=== PATIENT | male | born 1980 | race African-American/Black ===

== ENCOUNTER 2017-07-24 23:21 | Emergency (ER) | payer OTHER ==
[2017-07-24 23:35] VITALS: BP 143/89; PULSE 55; TEMP 99.1; BMI 27.1
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
[2017-07-25] MEDS ORDERED: VANCOMYCIN 1 GRAM (PRE-DOCKED) 1,000 MG/250 ML BAG IVPB ONE (00:16)
[2017-07-25] MEDS ORDERED: morphine SULFATE 4 MG/ML VIAL IVPUSH ONE (00:18)
[2017-07-25] MEDS ORDERED: AMPICILLIN NA/SULBACTAM NA 1.5 GM in SODIUM CHLORIDE 100 ML IVPB ONE (00:18)
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
[2017-07-25 01:18] LABS: MCH 30.1 pg (25.7-33.7); MCHC 33.3 g/dl (32.0-35.9); MEAN CELL VOLUME 90.3 fl (80-96); MEAN PLT VOLUME 8.5 fl (7.5-11.1); PLATELET COUNT 211 K/MM3 (134-434); RDW 13.3 % (11.9-15.9)
[2017-07-25] MEDS ORDERED: LIDOCAINE 2%/EPINEPHRINE 1:100000 (50 ML MD VIAL) INF ONE (01:18)
[2017-07-25] MEDS ORDERED: morphine SULFATE 4 MG/ML VIAL ONE (01:20)
[2017-07-25] MEDS ORDERED: VANCOMYCIN 1 GRAM (PRE-DOCKED) 250 ML IVPB ONE (01:20)
[2017-07-25] MEDS ORDERED: LIDOCAINE 1%/EPI 1:100000 (20 ML MULTI DOSE VIAL) ONE (01:20)
[2017-07-25 01:53] LABS: ALBUMIN 3.8 g/dl (3.4-5.0); ALK PHOS 65 U/L (45-117); ANION GAP 10 (8-16); BILIRUBIN,TOTAL 0.7 mg/dL (0.2-1.0); CALCIUM 8.4 mg/dL (8.5-10.1); CO2 25 mmol/L (21-32); CREATININE 1.4 mg/dL (0.7-1.3); GLUCOSE,RANDOM 89 mg/dL (74-106); SGOT/AST 21 U/L (15-37); SGPT/ALT 23 U/L (12-78); TOT PROT 7.9 g/dl (6.4-8.2)
[2017-07-25] MEDS ORDERED: morphine CARPU-JECT 8 MG/1 ML DISP.SYRIN IVPUSH ONE (02:50)
[2017-07-25] MEDS ORDERED: ACETAMINOPHEN 1000 MG/100 ML VIAL (NON FORMULARY) IVPB ONE (03:01)
[2017-07-25] MEDS ORDERED: ACETAMINOPHEN INJECTION 100 ML IVPB ONE (03:06)
== END 2017-07-25 03:33 | disposition home or self-care (01) ==
LOC: JER 23:21
PROC: 3E03329 Introduction of Other Anti-infective into Peripheral Vein, Percutaneous Approach (ICD-10-PCS; principal; 2017-07-24)
PROC: 3E03329 Introduction of Other Anti-infective into Peripheral Vein, Percutaneous Approach (ICD-10-PCS; 2017-07-24)
PROC: 3E033NZ Introduction of Analgesics, Hypnotics, Sedatives into Peripheral Vein, Percutaneous Approach (ICD-10-PCS; 2017-07-24)
PROC: 3E033GC Introduction of Other Therapeutic Substance into Peripheral Vein, Percutaneous Approach (ICD-10-PCS; 2017-07-24)
DX: S81.011A Laceration without foreign body, right knee, initial encounter (principal); V28.0XXA Motorcycle driver injured in noncollision transport accident in nontraffic accident, initial encounter; Y92.482 Bike path as the place of occurrence of the external cause; Y93.89 Activity, other specified; Y99.8 Other external cause status
CPT/HCPCS: 36415; 71010-TC; 73700-TC-RT; 80053; 85027; 99281-25; 99283-25

== ENCOUNTER 2017-08-04 02:43 | Emergency (ER) | payer OTHER ==
[2017-08-04 03:09] VITALS: TEMP 98.7; BMI 27.8
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
[2017-08-04] MEDS ORDERED: LIDOCAINE HCL 2% (50ML VIAL) SQ ONE (06:05)
[2017-08-04] MEDS ORDERED: LIDOCAINE HCL 2% (20ML MULTI-DOSE VIAL) NR ONE (06:10)
[2017-08-04 06:40] LABS: BASOPHIL 0.6 % (0-2.0); EOSINOPHIL 1.4 % (0-4.5); MCH 30.1 pg (25.7-33.7); MCHC 32.9 g/dl (32.0-35.9); MEAN CELL VOLUME 91.4 fl (80-96); MEAN PLT VOLUME 8.9 fl (7.5-11.1); NEUTROPHILS 37.6 % (42.8-82.8); PLATELET COUNT 215 K/MM3 (134-434); RDW 13.4 % (11.9-15.9); WHITE BLOOD COUNT 5.1 K/mm3 (4.0-10.0)
[2017-08-04 07:03] LABS: ALBUMIN 3.5 g/dl (3.4-5.0); ALK PHOS 59 U/L (45-117); ANION GAP 4 (8-16); BILIRUBIN,TOTAL 0.5 mg/dL (0.2-1.0); CALCIUM 8.6 mg/dL (8.5-10.1); CO2 30 mmol/L (21-32); CREATININE 1.3 mg/dL (0.7-1.3); GLUCOSE,RANDOM 93 mg/dL (74-106); SGOT/AST 19 U/L (15-37); SGPT/ALT 24 U/L (12-78); TOT PROT 7.2 g/dl (6.4-8.2)
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
--- NOTE | 2017-08-04 07:58 | PDOC ---
*Physical Exam - Vital Signs Last Vital Signs Temp Pulse Resp BP Pulse Ox 98.7 F 88 17 130/75 98 08/04/17 03:01 08/04/17 03:01 08/04/17 03:01 08/04/17 03:01 08/04/17 03:01 ED Treatment Course - LABORATORY CBC & Chemistry Diagram: 08/04/17 06:23 08/04/17 06:23 - ADDITIONAL ORDERS Additional order review: Laboratory Results 08/04/17 06:23 Sodium 142 Potassium 5.0 D Chloride 108 H Carbon Dioxide 30 Anion Gap 4 L BUN 17 D Creatinine 1.3 Creat Clearance w eGFR > 60 Random Glucose 93 Calcium 8.6 Total Bilirubin 0.5 D AST 19 ALT 24 Alkaline Phosphatase 59 Total Protein 7.2 Albumin 3.5 08/04/17 06:23 RBC 4.81 MCV 91.4 MCHC 32.9 RDW 13.4 MPV 8.9 Neutrophils % 37.6 L Lymphocytes % 50.3 H Monocytes % 10.1 Eosinophils % 1.4 Basophils % 0.6 - Medications Given in the ED: ED Medications Discontinued Medications Generic Name Dose Route Start Last Admin Trade Name Freq PRN Reason Stop Dose Admin Lidocaine HCl 50 mg 08/04/17 06:05 08/04/17 06:13 Xylocaine 2% SQ 08/04/17 06:06 50 mg ONCE ONE Administration Medical Decision Making - Medical Decision Making 08/04/17 07:53 pt signed out to me by Dr. Rodriguez as pending labs to rule out systemic infection for non healing knee wound. Labs show no evidence of infection. Wound examined by me--wound has granultion tissue and is partially open, but shows no signs of infection. Will give non adherent dressing. Will discharge home with plastics follow up. *DC/Admit/Observation/Transfer Diagnosis at time of Disposition: Open knee wound Qualifiers: Encounter type: subsequent encounter Laterality: right Qualified Code(s): S81.001D - Unspecified open wound, right knee, subsequent encounter - Discharge Dispostion Disposition: HOME Condition at time of disposition: Good Admit: No - Referrals Referrals: Brad Waters MD [Staff Physician] - - Patient Instructions Printed Discharge Instructions: DI for Wound Dehiscence Additional Instructions: your wound will heal by secondary intention. There is no signs of infection, but the wound will likely heal with a scar. return to the ED for fevers, redness or swelling of your knee, nausea or vomiting. Follow up with plastic surgery. - Post Discharge Activity
[2017-08-04 08:21] VITALS: BP 126/74; PULSE 85
== END 2017-08-04 08:22 | disposition home or self-care (01) ==
LOC: JER 02:43
DX: T81.33XA Disruption of traumatic injury wound repair, initial encounter (principal); Z48.02 Encounter for removal of sutures
CPT/HCPCS: 36415; 80053; 85025; 99281-25

== ENCOUNTER 2018-05-07 10:52 | Emergency (ER) | payer OTHER ==
[2018-05-07 11:06] VITALS: BP 116/81; PULSE 54; TEMP 98; BMI 25.1
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
== END 2018-05-07 12:04 | disposition home or self-care (01) ==
LOC: JER 10:52 → JERFT 10:52
PROC: 2W3LX1Z Immobilization of Right Lower Extremity using Splint (ICD-10-PCS; principal; 2018-05-07)
DX: S93.401A Sprain of unspecified ligament of right ankle, initial encounter (principal); W10.8XXA Fall (on) (from) other stairs and steps, initial encounter; Y93.89 Activity, other specified; Y92.89 Other specified places as the place of occurrence of the external cause; Y99.8 Other external cause status
CPT/HCPCS: 29505; 73590-TC-RT-FY; 73610-TC-RT-FY; 73630-TC-RT-FY; 99281-25

== ENCOUNTER 2018-06-12 21:14 | Inpatient (IN) | payer OTHER ==
--- NOTE | 2018-06-12 21:18 | PDOC ---
Rapid Medical Evaluation Chief Complaint: Pain Time Seen by Provider: 06/12/18 21:17 Medical Evaluation: Allergies Allergy/AdvReac Type Severity Reaction Status Date / Time No Known Allergies Allergy Verified 06/12/18 21:16 06/12/18 21:18 The patient presents with a chief complaint of: abd pain I have performed a brief in-person evaluation of this patient. Pertinent physical exam findings: vss, stable I have ordered the following: labs The patient will proceed to the ED for further evaluation. 06/12/18 21:19 Discharge Disposition - Referrals Referrals: Jay Mcmillan MD [Primary Care Provider] - - Patient Instructions - Post Discharge Activity
[2018-06-12] MEDS ORDERED: ONDANSETRON 4 MG/2 ML VIAL IVPUSH ONE (21:40)
[2018-06-12] MEDS ORDERED: morphine CARPU-JECT 4 MG/1 ML DISP.SYRIN IVPUSH ONE (21:40)
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
[2018-06-12 21:41] LABS: BASO % 0.6 % (0-2.0); EOS % 1.9 % (0-4.5); HEMATOCRIT 43.6 % (35.4-49); HEMOGLOBIN 14.5 GM/dL (11.7-16.9); LYMPH % 46.1 % (8-40); MCH 30.2 pg (25.7-33.7); MCHC 33.3 g/dl (32.0-35.9); MEAN CELL VOLUME 90.8 fl (80-96); MEAN PLT VOLUME 8.6 fl (7.5-11.1); MONO % 13.3 % (3.8-10.2); NEUT % 38.1 % (42.8-82.8); PLATELET COUNT 214 K/MM3 (134-434); RBC 4.81 M/mm3 (4.00-5.60); RDW 13.8 % (11.9-15.9); WHITE BLOOD COUNT 5.6 K/mm3 (4.0-10.0)
[2018-06-12 22:19] LABS: ALBUMIN 3.8 g/dl (3.4-5.0); ALK PHOS 71 U/L (45-117); ANION GAP 8 MMOL/L (8-16); BILIRUBIN,TOTAL 0.5 mg/dL (0.2-1); BLOOD UREA NITROGEN 18 mg/dL (7-18); CHLORIDE 105 mmol/L (98-107); CO2 28 mmol/L (21-32); CREATININE 1.3 mg/dL (0.55-1.3); GLUCOSE,RANDOM 81 mg/dL (74-106); LIPASE 226 U/L (73-393); POTASSIUM 4.3 mmol/L (3.5-5.1); SGOT/AST 27 U/L (15-37); SGPT/ALT 31 U/L (13-61); SODIUM 140 mmol/L (136-145); TOT PROT 8.1 g/dl (6.4-8.2)
[2018-06-12] MEDS ORDERED: ONDANSETRON 4 MG/2 ML VIAL ONE (22:19)
[2018-06-12] MEDS ORDERED: morphine SULFATE 4 MG/ML VIAL ONE (22:19)
[2018-06-13 00:43] LABS: INR 1.17 (0.83-1.09); PROTHROMBIN TIME (PATIENT) 13.2 SEC (9.7-13.0)
[2018-06-13 00:45] LABS: ACTIVATED PTT 34.7 SECONDS (25.2-36.5)
[2018-06-13] MEDS ORDERED: SODIUM CHLORIDE 1,000 ML IV SCH (00:45)
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
[2018-06-13 08:00] LABS: HEMATOCRIT 43.7 % (35.4-49); HEMOGLOBIN 14.5 GM/dL (11.7-16.9); MCHC 33.2 g/dl (32.0-35.9); MEAN CELL VOLUME 90.3 fl (80-96); MEAN PLT VOLUME 8.8 fl (7.5-11.1); PLATELET COUNT 168 K/MM3 (134-434); RBC 4.84 M/mm3 (4.00-5.60); RDW 13.7 % (11.9-15.9)
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
[2018-06-13 08:52] LABS: ANION GAP 10 MMOL/L (8-16); BLOOD UREA NITROGEN 15 mg/dL (7-18); CALCIUM 8.5 mg/dL (8.5-10.1); CHLORIDE 106 mmol/L (98-107); CO2 25 mmol/L (21-32); CREATININE 1.2 mg/dL (0.55-1.3); GLUCOSE,RANDOM 70 mg/dL (74-106); PHOSPHOROUS 3.2 mg/dL (2.5-4.9); POTASSIUM 4.2 mmol/L (3.5-5.1); SODIUM 140 mmol/L (136-145)
[2018-06-13] MEDS ORDERED: ROCURONIUM BROMIDE 50 MG/5 ML VIAL ONE (09:55)
[2018-06-13] MEDS ORDERED: SUCCINYLCHOLINE CHLORIDE 200 MG/10 ML VIAL ONE (09:56)
[2018-06-13] MEDS ORDERED: PROPOFOL 20 ML ONE ×2 (09:56)
[2018-06-13] MEDS ORDERED: MIDAZOLAM HCL 2 MG/2 ML SINGLE DOSE VIAL ONE (09:56)
[2018-06-13] MEDS ORDERED: BUPIVACAINE HCL/PF 0.5% (5MG/ML) 10 ML VIAL ONE (10:02)
[2018-06-13] MEDS ORDERED: ceFAZolin SODIUM 1 GM VIAL IVPB ONE (10:17)
[2018-06-13] MEDS ORDERED: ceFAZolin SODIUM 1 GM VIAL ONE (10:23)
[2018-06-13] MEDS ORDERED: DESFLURANE GAS 240 ML BOTTLE IH ONE (10:24)
[2018-06-13] MEDS ORDERED: NEOSTIGMINE METHYLSULFATE 0.5 MG/ML - 10 ML MDV ONE (11:05)
[2018-06-13] MEDS ORDERED: GLYCOPYRROLATE 0.2 MG/1 ML VIAL ONE (11:06)
[2018-06-13] MEDS ORDERED: KETOROLAC TROMETHAMINE 30 MG/1 ML VIAL ONE (11:06)
--- NOTE | 2018-06-13 11:26 | SURG ---
Surgery Auto Body Estimator Note Auto Body Estimator: Fritz Gonzalez PA-C Date of Service: 06/13/18 Diagnosis: Incarcerated incisional hernia Procedure: Open repair of incarcerated incisional hernia I was present for the entirety of the operative procedure. For further detail, please refer to operative report.
--- NOTE | 2018-06-13 11:38 | OP ---
Operative Note - Note: Operative Date: 06/13/18 Pre-Operative Diagnosis: incarcerated incisional hernia Operation: repair incarcerated incisional hernia Findings: 2.0 cm. defect w/incarcerated omentum/fat. Post-Operative Diagnosis: Same as Pre-op Surgeon: Abel Hutson Gunsmith Apprentice: Fritz Gonzalez Anesthesiologist/MANAGER EMPLOYEE RELATIONS: Mai Fitch Anesthesia: General Specimens Removed: sac and fat Estimated Blood Loss (mls): 10
[2018-06-13] MEDS ORDERED: LACTATED RINGERS SOLUTION 1,000 ML IV SCH (11:45)
[2018-06-13] MEDS ORDERED: ACETAMINOPHEN 325 MG TABLET (FP) PO PRN (12:30)
--- NOTE | 2018-06-13 18:04 | PN ---
Teaching Attending Note Name of Resident: Smita Stark ATTENDING PHYSICIAN STATEMENT I saw and evaluated the patient. I reviewed the resident's note and discussed the case with the resident. I agree with the resident's findings and plan as documented. SUBJECTIVE: abd pain, no fever or chills . No nausea . tolerated liquids OBJECTIVE: NAD Cv: RRR Lungs: CTAB abd: midline surgical dressing . NT. nl BS Ext: no edema ASSESSMENT AND PLAN: 37 y/o man with no significant PMH who presented with abd painand was found ot have incarcerated hernia 1- Incarcerated abdominal hernia: s/p surgical repair this am - IVF - diet - pain control - incentive spirometer DVt PX possible dc tomorrow
[2018-06-13] MEDS: oxyCODONE HCL 5 MG TABLET PO PRN ×2 (18:10→22:03)
--- NOTE | 2018-06-13 21:14 | PN ---
Physical Exam: SUBJECTIVE: Patient seen and examined this morning at bedside. Said abdominal pain is 10/10, came on after weight lifting. Did not have any BMs the day before admission, Did not eat much either. OBJECTIVE: Vital Signs Period Temp Pulse Resp BP Sys/Quiñonez Pulse Ox Last 24 Hr 97.7 F-99.1 F 50-62 14-20 130-158/73-92 98-100 GENERAL: The patient is awake, alert, and fully oriented, in no acute distress. HEAD: NCAT EYES: PERRL, EOMI ENT: Oropharynx clear without exudates, MMM NECK: Supple, No JVD LUNGS: Breath sounds equal, clear to auscultation bilaterally, no wheezes HEART: Regular rate and rhythm, S1, S2 without murmur. ABDOMEN: Soft, Tender to palpation throughout, worst at the midline over non- reducible, supraumbilical hernia, nondistended, + bowel sounds EXTREMITIES: 2+ pulses, warm, well-perfused, no edema. NEUROLOGICAL: Cranial nerves II through XII grossly intact. Normal speech, gait not observed. : No scrotal swelling, No Erythema noted, No lacerations or obvious signs of trauma, Right and left testicles equally firm, Mild tenderness to touch on the Left, No inguinal hernias noted, No inguinal lymphadenopathy noted Laboratory Results - last 24 hr 06/12/18 06/12/18 06/13/18 21:35 21:35 00:18 WBC 5.6 RBC 4.81 Hgb 14.5 Hct 43.6 MCV 90.8 MCH 30.2 MCHC 33.3 RDW 13.8 Plt Count 214 MPV 8.6 Absolute Neuts (auto) 2.1 Neutrophils % 38.1 L Lymphocytes % 46.1 H Monocytes % 13.3 H Eosinophils % 1.9 Basophils % 0.6 Nucleated RBC % 0 PT with INR 13.20 H INR 1.17 H PTT (Actin FS) 34.7 Sodium 140 Potassium 4.3 Chloride 105 Carbon Dioxide 28 Anion Gap 8 BUN 18 Creatinine 1.3 Creat Clearance w eGFR > 60 Random Glucose 81 Lactic Acid Calcium 9.0 Phosphorus Magnesium Total Bilirubin 0.5 AST 27 ALT 31 Alkaline Phosphatase 71 Total Protein 8.1 Albumin 3.8 Lipase 226 Blood Type Antibody Screen 06/13/18 06/13/18 06/13/18 00:18 00:18 07:45 WBC 5.0 RBC 4.84 Hgb 14.5 Hct 43.7 MCV 90.3 MCH 30.0 MCHC 33.2 RDW 13.7 Plt Count 168 D MPV 8.8 Absolute Neuts (auto) Neutrophils % Lymphocytes % Monocytes % Eosinophils % Basophils % Nucleated RBC % PT with INR INR PTT (Actin FS) Sodium Potassium Chloride Carbon Dioxide Anion Gap BUN Creatinine Creat Clearance w eGFR Random Glucose Lactic Acid 1.1 Calcium Phosphorus Magnesium Total Bilirubin AST ALT Alkaline Phosphatase Total Protein Albumin Lipase Blood Type A POSITIVE Antibody Screen Negative 06/13/18 06/13/18 07:45 07:45 WBC RBC Hgb Hct MCV MCH MCHC RDW Plt Count MPV Absolute Neuts (auto) Neutrophils % Lymphocytes % Monocytes % Eosinophils % Basophils % Nucleated RBC % PT with INR INR PTT (Actin FS) Sodium 140 Potassium 4.2 Chloride 106 Carbon Dioxide 25 Anion Gap 10 BUN 15 Creatinine 1.2 Creat Clearance w eGFR > 60 Random Glucose 70 L Lactic Acid Calcium 8.5 Phosphorus 3.2 Magnesium 2.0 Total Bilirubin AST ALT Alkaline Phosphatase Total Protein Albumin Lipase Blood Type A POSITIVE Antibody Screen Negative Active Medications Acetaminophen (Tylenol -) 650 mg PO Q6H PRN PRN Reason: PAIN LEVEL 1-5 Fentanyl (Sublimaze Injection -) 25 mcg IVPUSH [id number] PRN PRN Reason: PAIN-PACU ORDER X 4 DOSES ONLY Heparin Sodium (Porcine) (Heparin -) 5,000 unit SQ TID CINDI Lactated Ringer's (Lactated Ringers Solution) 1,000 mls @ 125 mls/hr IV ASDIR CINDI Oxycodone HCl (Roxicodone -) 5 mg PO Q4H PRN PRN Reason: PAIN LEVEL 4 - 6 Last Admin: 06/13/18 18:10 Dose: 5 mg IMAGING: -CXR: No evidence of active pulmonary disease. -CT A/P with contrast: Punctate nonobstructing right renal stone. Minimal right renal hydronephrosis without gross evidence of an obstructing right ureteral stone. A urology consult is suggested. Lack of oral contrast is limiting this examination without evidence of bowel obstruction or colitis. Questionable few diverticula in the descending and sigmoid colon without evidence of acute diverticulitis. Correlate clinically to determine further evaluation and follow-up. ASSESSMENT/PLAN: 37 yo male with no PMHx presents to [facility] ED with acute onset supraumbilical abd pain, 06/28, non-radiating that came on while working out at the gym. FOund to have supraumbilical hernia on CT and was scheduled for OR on 06/13. 1. Abdominal pain - likely due to Supraumbilical abdominal hernia -Surgery (Dr. Hutson) consulted, POD#0 s/p surgical repair (06/13) - IVF: LR @ 125 mls/hr - Clear Liquid diet - pain control via oxycodone 5mg - incentive spirometer 2. Left Testicular pain - Will need to R/O Torsion, STDs - US Scrotum pending - GC Tests pending 3. Hydronephrosis seen on CT - Urology (Dr. Palm) consulted - will likely need outpatient follow up 4. FEN -LR @ 125mls -Lytes WNL -Clearl Liquid diet 5. PPx - DVT: Heparin TID Dispo: possible dc tomorrow Visit type - Emergency Visit Emergency Visit: Yes ED Registration Date: 06/12/18 Care time: The patient presented to the Emergency Department on the above date and was hospitalized for further evaluation of their emergent condition. - New Patient This patient is new to me today: Yes Date on this admission: 06/13/18 - Critical Care Critical Care patient: No
[2018-06-13] MEDS: HEPARIN NA (PORCINE) 5,000 UNITS/ML 1ML VIAL SQ SCH (21:56)
[2018-06-14] MEDS: oxyCODONE HCL 5 MG TABLET PO PRN ×4 (02:16→17:04)
[2018-06-14] MEDS: HEPARIN NA (PORCINE) 5,000 UNITS/ML 1ML VIAL SQ SCH ×2 (06:33→13:16)
[2018-06-14 07:04] LABS: BASO % 0.3 % (0-2.0); EOS % 0.9 % (0-4.5); HEMATOCRIT 43.7 % (35.4-49); HEMOGLOBIN 14.6 GM/dL (11.7-16.9); LYMPH % 29.4 % (8-40); MCH 30.1 pg (25.7-33.7); MCHC 33.3 g/dl (32.0-35.9); MEAN CELL VOLUME 90.3 fl (80-96); MEAN PLT VOLUME 8.7 fl (7.5-11.1); MONO % 7.8 % (3.8-10.2); NEUT % 61.6 % (42.8-82.8); PLATELET COUNT 187 K/MM3 (134-434); RBC 4.84 M/mm3 (4.00-5.60); RDW 13.6 % (11.9-15.9); WHITE BLOOD COUNT 5.8 K/mm3 (4.0-10.0)
[2018-06-14 07:33] LABS: ALBUMIN 3.2 g/dl (3.4-5.0); ALK PHOS 69 U/L (45-117); ANION GAP 5 MMOL/L (8-16); BLOOD UREA NITROGEN 12 mg/dL (7-18); CALCIUM 8.6 mg/dL (8.5-10.1); CHLORIDE 102 mmol/L (98-107); CO2 29 mmol/L (21-32); CREATININE 1.5 mg/dL (0.55-1.3); GLUCOSE,RANDOM 79 mg/dL (74-106); PHOSPHOROUS 3.6 mg/dL (2.5-4.9); SGOT/AST 21 U/L (15-37); SGPT/ALT 23 U/L (13-61); SODIUM 137 mmol/L (136-145)
--- NOTE | 2018-06-14 11:07 | DS ---
"Physical Exam: SUBJECTIVE: Patient seen and examined this morning at bedside POD#1 s/p hernia repair. Pain is currently controlled, patient requested Oxycodone x 2 overnight. Patient ambulated overnight to urinate, has passed gas, and is using the incentive spirometer regularly. He has tolerated clears over night and breakfast this morning. Patient says his scrotal tenderness has resolved. Denies any fevers, chills, chest pain, SOB, nausea, vomiting, diarrhea, constipation. OBJECTIVE: Vital Signs Period Temp Pulse Resp BP Sys/Quiñonez Pulse Ox Last 24 Hr 97.7 F-98.7 F 50-58 14-18 130-152/73-92 98-100 PHYSICAL EXAM GENERAL: The patient is awake, alert, and fully oriented, in no acute distress. HEAD: NCAT EYES: PERRL, EOMI ENT: Oropharynx clear without exudates, moist mucous membranes. NECK: Supple, No JVD LUNGS: Breath sounds equal, clear to auscultation bilaterally, no wheezes HEART: Regular rate and rhythm, S1, S2 without murmur. ABDOMEN: Midline bandage covering surgical site, without active drainage or surrounding erythema and edema, mild tenderness at the surgical site without surrounding tenderness. Soft, nondistended, + bowel sounds, no guarding EXTREMITIES: 2+ pulses, no edema. SKIN: Warm, dry, no rashes or lesions noted. LABS Laboratory Results - last 24 hr 06/14/18 06/14/18 06:00 06:00 WBC 5.8 RBC 4.84 Hgb 14.6 Hct 43.7 MCV 90.3 MCH 30.1 MCHC 33.3 RDW 13.6 Plt Count 187 MPV 8.7 Absolute Neuts (auto) 3.6 Neutrophils % 61.6 D Lymphocytes % 29.4 D Monocytes % 7.8 Eosinophils % 0.9 Basophils % 0.3 Nucleated RBC % 0 Sodium 137 Potassium 4.0 Chloride 102 Carbon Dioxide 29 Anion Gap 5 L BUN 12 Creatinine 1.5 H Creat Clearance w eGFR 52.95 Random Glucose 79 Calcium 8.6 Phosphorus 3.6 Magnesium 2.0 Total Bilirubin 1.0 AST 21 ALT 23 Alkaline Phosphatase 69 Total Protein 7.0 Albumin 3.2 L IMAGING: -CXR: No evidence of active pulmonary disease. -CT A/P with contrast: Punctate nonobstructing right renal stone. Minimal right renal hydronephrosis without gross evidence of an obstructing right ureteral stone. A urology consult is suggested. Lack of oral contrast is limiting this examination without evidence of bowel obstruction or colitis. Questionable few diverticula in the descending and sigmoid colon without evidence of acute diverticulitis. There is a small ventral hernia within the anterior abdominal wall, slightly superior to the umbilicus. The hernia sac contains mesenteric fat. There is stranding and mild inflammatory changes within the herniated fat and the possibility of incarceration cannot be excluded. Clinical correlation is advised. No bowel is contained within the hernia. -Testicular US: Normal testicular sonogram with no evidence of torsion or acute pathology. HOSPITAL COURSE: Date of Admission:06/12/18 Date of Discharge: 06/14/18 37 y/o M with no significant PMHx presented to the ED with severe abdominal pain after working out at the gym. CT A/P showed a small ventral hernia within the anterior abdominal wall, containing mesenteric fat as noted above. General surgery was consulted and an Open repair of incarcerated incisional hernia was done on 06/13. Post-Op, Patient was able to tolerate clear liquids and eventually regular diet, His pain was controlled, He was able to urinate without catheterization and was able to pass flatus. He continued to use his incentive spirometer. Prior to his surgery, patient mentioned left testicular pain for which a Testicular Ultrasound was done and noted above. CT A/P also revealed a minimal right renal hydronephrosis for which a urology consult is recommended. His Cr was elevated and he was managed with IVF and instruction to follow up with Dr. Ladd in 1 week. Patient was discharged home to follow up with Dr. Hutson in One week. Minutes to complete discharge: 40 Discharge Summary Reason For Visit: IRREDUCIBLE HERNIA OF ANTERIOR ABDOMINAL WALL. Current Active Problems Hernia of abdominal wall (Acute) Incisional hernia (Acute) Condition: Improved - Instructions Diet, Activity, Other Instructions: Dr. Hutson Discharge Instructions Dear Abdelrahman, Post Operative Instructions Physical activity Resume your normal everyday activity as tolerated no heavy lifting or exercise until seen by your surgeon. You may walk unlimited amounts of and climb stairs. You may resume driving the car when you feel safe and comfortable behind the wheel. Wound care If you have a bandage, leave it on, and keep dry for 48 - 72 hours. After that time discard the outer bandage. If there are tapes on the skin under the outer bandage, leave them in place. They will peel off in the next 7 to 10 days. Do Not peel them off. You may shower 2 days after surgery. If there are tapes present on the skin, they can get wet. Diet There are no dietary restrictions. Eat healthy, high-fiber foods. Drink 6 to 8 glasses of liquid each day. This will assist in keeping your bowels are regular. Pain management You may take Tylenol or acetaminophen or Ibuprofen (for example, Motrin, Advil etc.) Any pain prescription medication ordered should be taken as prescribed for moderate to severe pain. Do not operate a motor vehicle while taking any narcotics nor drink alcoholic beverages as it will potentiate (increase) the effects of the drug. [place] [employer] checked prior to escribe of narcotics for pain management. This report was requested by: Arturo Ramsey | Reference #: [id number] Call Dr. Hutson for any of the following: Severe pain not relieved by medication Fever of 101 or higher Excessive bleeding or drainage on dressing Inability to urinate Call the office at [phone] for a post operative appointment in 7 - 10 days. One of your Kidney levels (Creatinine) was elevated. Please continue oral hydration and follow up with your primary care physician in one week. You will need a repeat lab test (BMP) to check this level. We are also giving you information to follow with a kidney doctor- Dr Ladd as an outpatient. Please call to make the appointment CT scan revealed you may have a Swelling of your right kidney (Right Hydronephrosis). It is recommended you follow up with a Urologist to further manage this. Dr. Darby's information has been provided. Referrals: Abel Hutson MD [Staff Physician] - 1 Week Juancarlos Darby MD [Staff Physician] - 1 Month Jay Mcmillan MD [Primary Care Provider] - 1 Week (Will need repeat BMP to recheck Cr level) Patsy Ladd MD [Staff Physician] - 2 Weeks Disposition: HOME - Home Medications Comprehensive Discharge Medication List: Ambulatory Orders NK [No Known Home Medication] 06/13/18 This patient is new to me today: Yes Date on this admission: 06/14/18 Emergency Visit: Yes ED Registration Date: 06/12/18 Care time: The patient presented to the Emergency Department on the above date and was hospitalized for further evaluation of their emergent condition. Critical Care patient: No - Discharge Referral Referred to [facility] No"
[2018-06-14] MEDS ORDERED: GLYCERIN 1 RECTAL SUPPOSITORY, ADULT RC ONE (11:22)
[2018-06-14] MEDS ORDERED: LACTATED RINGERS SOLUTION 1,000 ML IV SCH (11:23)
[2018-06-14 12:54] VITALS: BMI 27.8
[2018-06-14] MEDS ORDERED: DOCUSATE SODIUM 100 MG CAPSULE (FP) PO SCH (14:00)
--- NOTE | 2018-06-14 14:01 | PN ---
Progress Note (short form) - Note Progress Note: Surgery POD#1 repair incarcerated incisional hernia seen and examined at bedside with no complaints. Patient has been OOB ambulating to bathroom without assistance. He is passing gas from below but no BM yet. He states his pain is controlled and he denies any CP, fever, chills, N/V or SOB. Vital Signs Temp 98.3 F 06/14/18 09:00 Pulse 56 L 06/14/18 09:00 Resp 18 06/14/18 09:00 BP 133/78 06/14/18 09:00 Pulse Ox 98 06/14/18 09:00 Intake & Output 06/13/18 06/14/18 06/14/18 23:59 11:59 23:59 Intake Total 1325 1075 Balance 1325 1075 Weight 200 lb Intake: IV 1125 875 Lactated Ringers Solution 625 875 1,000 ml @ 125 mls/hr IV ASDIR CINDI Rx#: [id number] Normal Saline - 1,000 ml 300 @ 150 mls/hr IV ASDIR CINDI Rx#:[id number] Oral 200 200 Other: Voiding Method Toilet Toilet # Unmeasured Voids Void 1 Height 5 ft 11 in Body Mass Index (BMI) 27.8 CBC, BMP 06/14/18 06:00 06/14/18 06:00 PE: A&Ox3, NAD unlabored resp on RA ABD: Obese, ND, diffusely TTP around surgical site, midline incision c/d/i with cornelio insitu and surrounding tissue intact with no evidence of tacking erythema. incision redressed with xeroform, 4x4 and tegaderm B/L LE compartments soft, supple and nontender with +2 pedal pulses Problem List - Problems (1) Status post hernia repair Assessment/Plan: POD #1 patient doing well. 1) pain management 2) Encourage daily IS 3) Keep dressing clean and dry 4) d/c home and follow up with Caryl as outpatient Evaluation and plan discussed with Dr Hutson Code(s): Z98.890 - OTHER SPECIFIED POSTPROCEDURAL STATES; Z87.19 - PERSONAL HISTORY OF OTHER DISEASES OF THE DIGESTIVE SYSTEM
--- NOTE | 2018-06-14 15:14 | PN ---
Teaching Attending Note Name of Resident: Smita Stark ATTENDING PHYSICIAN STATEMENT I saw and evaluated the patient. I reviewed the resident's note and discussed the case with the resident. I agree with the resident's findings and plan as documented. SUBJECTIVE: Patient ia comfortable with no acute distress. OBJECTIVE: Vital Signs Temperature 98.3 F 06/14/18 09:00 Pulse Rate 56 L 06/14/18 09:00 Respiratory Rate 18 06/14/18 09:00 Blood Pressure 133/78 06/14/18 09:00 O2 Sat by Pulse Oximetry (%) 98 06/14/18 09:00 GENERAL: The patient is awake, alert, and fully oriented, in no acute distress. HEAD: NCAT EYES: PERRL, EOMI ENT: Oropharynx clear without exudates, MMM NECK: Supple, No JVD LUNGS: Breath sounds equal, clear to auscultation bilaterally, no wheezes HEART: RRR, S1, S2 without murmur. ABDOMEN: Soft, Positive for bowel sounds EXTREMITIES: 2+ pulses, warm, well-perfused, no edema. NEUROLOGICAL: Cranial nerves II through XII grossly intact. WBC 5.8 K/mm3 (4.0-10.0) 06/14/18 06:00 RBC 4.84 M/mm3 (4.00-5.60) 06/14/18 06:00 Hgb 14.6 GM/dL (11.7-16.9) 06/14/18 06:00 Hct 43.7 % (35.4-49) 06/14/18 06:00 MCV 90.3 fl (80-96) 06/14/18 06:00 MCHC 33.3 g/dl (32.0-35.9) 06/14/18 06:00 RDW 13.6 % (11.9-15.9) 06/14/18 06:00 Plt Count 187 K/MM3 (134-434) 06/14/18 06:00 MPV 8.7 fl (7.5-11.1) 06/14/18 06:00 CMP Sodium 137 mmol/L (136-145) 06/14/18 06:00 Potassium 4.0 mmol/L (3.5-5.1) 06/14/18 06:00 Chloride 102 mmol/L (98-107) 06/14/18 06:00 Carbon Dioxide 29 mmol/L (21-32) 06/14/18 06:00 Anion Gap 5 MMOL/L (8-16) L 06/14/18 06:00 BUN 12 mg/dL (7-18) 06/14/18 06:00 Creatinine 1.5 mg/dL (0.55-1.3) H 06/14/18 06:00 Creat Clearance w eGFR 52.95 (>60) 06/14/18 06:00 Random Glucose 79 mg/dL (74-106) 06/14/18 06:00 Calcium 8.6 mg/dL (8.5-10.1) 06/14/18 06:00 Total Bilirubin 1.0 mg/dL (0.2-1) 06/14/18 06:00 AST 21 U/L (15-37) 06/14/18 06:00 ALT 23 U/L (13-61) 06/14/18 06:00 Alkaline Phosphatase 69 U/L (45-117) 06/14/18 06:00 Total Protein 7.0 g/dl (6.4-8.2) 06/14/18 06:00 Albumin 3.2 g/dl (3.4-5.0) L 06/14/18 06:00 Current Medications Generic Name Dose Route Start Last Admin Trade Name Rosy PRN Reason Stop Dose Admin Acetaminophen 650 mg 06/13/18 12:30 Tylenol - PO Q6H PRN PAIN LEVEL 1-5 Docusate Sodium 100 mg 06/14/18 14:00 06/14/18 13:16 Colace - PO 100 mg TID CINDI Administration Fentanyl 25 mcg 06/13/18 11:38 Sublimaze Injection - IVPUSH [id number] PRN PAIN-PACU ORDER X 4 DOSES ONLY Heparin Sodium (Porcine) 5,000 unit 06/13/18 22:00 06/14/18 13:16 Heparin - SQ 5,000 unit TID CINDI Administration Lactated Ringer's 1,000 mls @ 250 mls/hr 06/14/18 11:23 06/14/18 11:40 Lactated Ringers Solution IV 250 mls/hr ASDIR CINDI Administration Oxycodone HCl 5 mg 06/13/18 12:31 06/14/18 11:39 Roxicodone - PO 5 mg Q4H PRN Administration PAIN LEVEL 4 - 6 Home Medications Medication Instructions Recorded NK [No Known Home Medication] 06/13/18 ASSESSMENT AND PLAN: Patient is a 37yo male with no significant PMH who presented with abd pain and was found to have incarcerated hernia # Incarcerated abdominal hernia: s/p surgical repair this am comfortable , tolerated diet , ok to send patient home discharge patient home
[2018-06-14 15:17] VITALS: BP 134/86; PULSE 64; TEMP 98.9
[2018-06-14 15:36] LABS: ANION GAP 9 MMOL/L (8-16); BLOOD UREA NITROGEN 12 mg/dL (7-18); CALCIUM 8.7 mg/dL (8.5-10.1); CHLORIDE 102 mmol/L (98-107); CO2 30 mmol/L (21-32); CREATININE 1.4 mg/dL (0.55-1.3); GLUCOSE,RANDOM 66 mg/dL (74-106); POTASSIUM 4.1 mmol/L (3.5-5.1); SODIUM 140 mmol/L (136-145)
--- NOTE | 2018-06-14 17:55 | PATH ---
Surgical Pathology Report Patient Name: WILLIAM ANTONIO Med. Rec. #: [id number] /Age/Gender: 1980 (Age: 37) / M Account: [id number] Location: [facility] MED/SURG Taken: 06/13/2018 Received: 06/13/2018 Reported: 06/14/2018 Physicians: Abel Hutson MD PHYSICIAN EMERGENCY DEPT Specimen(s) Received HERNIA SAC AND SCAR Clinical History Ventral hernia Final Diagnosis HERNIA SAC AND SCAR, EXCISION: FIBROADIPOSE TISSUE, CONSISTENT WITH HERNIA SAC. Electronically Signed Mirtha Brennan M.D. Gross Description Received in formalin, labeled "hernia sac" are 2 johnson, irregular portions of fibroadipose tissue measuring 4 x 3.5 x 1.8cm in aggregate. Fine Wire Drawer sections are submitted in one cassette. EDWARD/06/13/2018 marciano/06/13/2018
--- NOTE | 2018-06-19 19:44 | OP ---
DATE OF OPERATION: 06/13/2018 PREOPERATIVE DIAGNOSIS: Incarcerated incisional hernia. POSTOPERATIVE DIAGNOSIS: Incarcerated incisional hernia. PROCEDURE: Repair of incarcerated incisional hernia. SURGEON: Abel Hutson MD ASSURANCE ASSISTANT: Fritz Gonzalez PA-C ANESTHESIA: General. OPERATIVE FINDINGS: There was a 2-cm defect above the umbilicus, containing incarcerated omentum and preperitoneal fat. The rest of the findings were unremarkable. DESCRIPTION OF PROCEDURE: The patient was placed on the operating table in supine position. After the induction of general anesthesia, the patient's abdomen was prepped with ChloraPrep and draped in sterile fashion. A timeout was taken. An incision was made above the umbilicus and the palpable incarcerated hernia. This was taken down through skin and subcutaneous tissue, and the sac isolated from the surrounding area. The sac was opened, and the previously noted findings were observed. Redundant omentum and fat were excised using electrocautery and sent for pathological exam. The undersurface of the fascia was cleared, and the defect was repaired with multiple horizontal mattress sutures consisting of 0 Prolene. Hemostasis was secured with electrocautery and wound copiously irrigated with sterile saline. The subcutaneous tissue was infiltrated with 1% Xylocaine and 0.5% Marcaine and then the deep dermis reapproximated with interrupted 3-0 Vicryl and the skin edges with 4-0 Monocryl in a subcuticular continuous fashion. Steri-Strips and dry sterile dressings were placed and the procedure terminated at this point and the patient aroused from general anesthesia and transferred to the postanesthesia care unit in stable condition, awake, and alert. ESTIMATED BLOOD LOSS: 10 mL REPLACEMENTS: Crystalloid. DRAINS: None. SPECIMENS: Omentum and fat to pathology. I, Abel Hutson, was physically present in the operating room from the time the patient was placed on the operating table until he was transported to the postanesthesia care unit in my accompaniment. MD STEPHEN Guajardo/[id number]
== END 2018-06-14 18:39 | disposition home or self-care (01) | DRG 227 ==
LOC: JER 21:14 → JERBED 23:17 → J7W 06-13 05:06
PROVIDERS: ADMIT Internal Medicine; ATTEND Internal Medicine
PROC: 0WQF0ZZ Repair Abdominal Wall, Open Approach (ICD-10-PCS; principal; 2018-06-13 10:00)
DX: K43.0 Incisional hernia with obstruction, without gangrene (principal); N13.30 Unspecified hydronephrosis; N20.0 Calculus of kidney; N50.812 Left testicular pain; E66.9 Obesity, unspecified; Z68.27 Body mass index [BMI] 27.0-27.9, adult
CPT/HCPCS: 36415; 71045-TC-FY; 74177-TC; 76870-TC; 80048; 80053; 83605; 83690; 83735; 84100; 85025; 85027; 85610; 85730; 86850; 86900; 86901; 88302-TC; 94010; 94760; 99283-25; J1644; J7030

== ENCOUNTER 2018-08-20 02:36 | Emergency (ER) | payer OTHER ==
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
[2018-08-20 03:00] VITALS: TEMP 98.3; BMI 29.5
--- NOTE | 2018-08-20 03:15 | PDOC ---
Attending Attestation - Resident Resident Name: YahirFern - ED Attending Attestation I have performed the following: I have examined & evaluated the patient, The case was reviewed & discussed with the resident, I agree w/resident's findings & plan - HPI HPI: 08/20/18 05:09 Pt fears he has STDs Pt also with dysuria x 2 weeks - Physicial Exam PE: 08/20/18 05:10 Agree with resident exam. - Medical Decision Making 08/20/18 05:10 Home with keflex. Will treat for GC/chlamysdia here
[2018-08-20 03:48] LABS: BASO % 0.5 % (0-2.0); EOS % 1.7 % (0-4.5); HEMATOCRIT 41.3 % (35.4-49); HEMOGLOBIN 14.4 GM/dL (11.7-16.9); LYMPH % 30.2 % (8-40); MCH 31.6 pg (25.7-33.7); MEAN CELL VOLUME 90.3 fl (80-96); MONO % 8.9 % (3.8-10.2); NEUT % 58.7 % (42.8-82.8); PLATELET COUNT 215 K/MM3 (134-434); RBC 4.57 M/mm3 (4.00-5.60); WHITE BLOOD COUNT 6.3 K/mm3 (4.0-10.0)
[2018-08-20 04:10] LABS: URINE APPEARANCE CLEAR; URINE BILIRUBIN NEGATIVE (<2.0 mg/dL); URINE COLOR YELLOW; URINE GLUCOSE (UA) NEGATIVE (NEGATIVE); URINE KETONE NEGATIVE (NEGATIVE); URINE LEUK ESTERASE TRACE (NEGATIVE); URINE NITRITE NEGATIVE (NEGATIVE); URINE PROTEIN 1+ (NEGATIVE); URINE UROBILINOGEN NEGATIVE mg/dL (0.2-1.0)
[2018-08-20 04:11] LABS: ALBUMIN 3.9 g/dl (3.4-5.0); ALK PHOS 71 U/L (45-117); ANION GAP 7 MMOL/L (8-16); BILIRUBIN,TOTAL 0.3 mg/dL (0.2-1); BLOOD UREA NITROGEN 13 mg/dL (7-18); CALCIUM 9.1 mg/dL (8.5-10.1); CHLORIDE 103 mmol/L (98-107); CO2 29 mmol/L (21-32); CREATININE 1.5 mg/dL (0.55-1.3); GLUCOSE,RANDOM 89 mg/dL (74-106); POTASSIUM 4.3 mmol/L (3.5-5.1); SGOT/AST 25 U/L (15-37); SGPT/ALT 26 U/L (13-61); SODIUM 139 mmol/L (136-145); TOT PROT 7.7 g/dl (6.4-8.2)
[2018-08-20 04:52] LABS: URINE MUCUS RARE
[2018-08-20] MEDS ORDERED: AZITHROMYCIN 250 MG TABLET PO ONE (05:08)
[2018-08-20] MEDS ORDERED: CEPHALEXIN MONOHYDRATE 500 MG CAPSULE (UD) PO ONE (05:09)
[2018-08-20] MEDS ORDERED: CEPHALEXIN MONOHYDRATE 500 MG CAPSULE (UD) ONE (05:13)
[2018-08-20] MEDS ORDERED: AZITHROMYCIN 250 MG TABLET ONE (05:13)
[2018-08-20] MEDS ORDERED: cefTRIAXone SODIUM 1 GM VIAL ONE (05:14)
[2018-08-20] MEDS ORDERED: LIDOCAINE HCL 1%, 10 MG/ML (20ML VIAL) ONE (05:19)
[2018-08-20 05:36] VITALS: BP 137/82; PULSE 78
== END 2018-08-20 05:36 | disposition home or self-care (01) ==
LOC: JER 02:36
DX: N39.0 Urinary tract infection, site not specified (principal)
CPT/HCPCS: 36415; 80053; 81003; 81015; 85025; 86593; 87070; 87086; 87389; 87491; 87591; 87661; 87804; 96372; 99282-25

== ENCOUNTER 2020-04-22 22:49 | Emergency (ER) | payer OTHER ==
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
[2020-04-22 23:10] VITALS: BMI 27.8
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
[2020-04-23 00:12] LABS: BASO % 0.8 % (0-2.0); EOS % 1.2 % (0-4.5); HEMATOCRIT 43.5 % (35.4-49); HEMOGLOBIN 14.4 GM/dL (11.7-16.9); LYMPH % 39.2 % (8-40); MCH 30.4 pg (25.7-33.7); MCHC 33.1 g/dl (32.0-35.9); MEAN CELL VOLUME 91.9 fl (80-96); MEAN PLT VOLUME 9.3 fl (7.5-11.1); MONO % 12.4 % (3.8-10.2); NEUT % 46.4 % (42.8-82.8); PLATELET COUNT 228 K/MM3 (134-434); RBC 4.73 M/mm3 (4.00-5.60); RDW 14.2 % (11.9-15.9)
[2020-04-23 00:34] LABS: EPI CELLS 26 /uL (0-25.1); HYALINE CASTS 5 /uL (0-3.1); URINE APPEARANCE CLEAR; URINE BACTERIA 9 /uL (0-1359); URINE BILIRUBIN NEGATIVE (NEGATIVE); URINE COLOR YELLOW; URINE GLUCOSE (UA) NEGATIVE (NEGATIVE); URINE KETONE TRACE (NEGATIVE); URINE LEUK ESTERASE NEGATIVE (NEGATIVE); URINE NITRITE NEGATIVE (NEGATIVE); URINE PROTEIN 4+ (NEGATIVE); URINE RBC 9 /uL (0-23.9); URINE WBC 9 /uL (0-25.8)
[2020-04-23 00:39] LABS: ALBUMIN 3.5 g/dl (3.4-5.0); BILIRUBIN,TOTAL 0.8 mg/dL (0.2-1); BLOOD UREA NITROGEN 16.4 mg/dL (7-18); CALCIUM 9.4 mg/dL (8.5-10.1); TOT PROT 7.4 g/dl (6.4-8.2)
[2020-04-23 00:43] LABS: COCAINE, UR NEGATIVE ng/ml (CUTOFF=300); OPIATES, URI NEGATIVE ng/ml (CUTOFF=300); URINE BARBITURATES NEGATIVE ng/ml (CUTOFF=200)
--- NOTE | 2020-04-23 00:45 | PDOC ---
Attending Attestation - Resident Resident Name: Malick Major - ED Attending Attestation I have performed the following: I have examined & evaluated the patient, The case was reviewed & discussed with the resident, I agree w/resident's findings & plan - HPI HPI: 04/23/20 00:44 see resident hpi - Physicial Exam PE: 04/23/20 00:44 see resident exam - Medical Decision Making 04/23/20 00:44 39-year-old male stating he is not thinking right and wants to harm his and others He denies psychiatric history Plan for medical clearance with consult pending in the a.m. Discharge - Discharge Information Problems reviewed: Yes Clinical Impression/Diagnosis: Homicidal ideation - Follow up/Referral Referrals: Lisa Ramirez MD [Primary Care Provider] - - Patient Discharge Instructions - Post Discharge Activity Work/Back to School Note: My Personal Safety Plan
[2020-04-23 00:55] LABS: METHADONE, UR NEGATIVE ng/ml (CUTOFF=300); PHENCYCLIDINE,URINE NEGATIVE ng/ml (CUTOFF=25); URINE AMPHETAMINES NEGATIVE ng/ml (CUTOFF=500); URINE BENZODIAZEPINES NEGATIVE ng/ml (CUTOFF=200)
[2020-04-23] MEDS ORDERED: LACTATED RINGERS SOLUTION 1000 ML INFUS.BAG IV ONE (03:11)
[2020-04-23 07:03] LABS: BLOOD UREA NITROGEN 19.8 mg/dL (7-18); CALCIUM 8.8 mg/dL (8.5-10.1); CREATININE 1.8 mg/dL (0.55-1.3); POTASSIUM 4.1 mmol/L (3.5-5.1)
--- NOTE | 2020-04-23 09:06 | EKG ---
Test Reason : Blood Pressure : / mmHG Vent. Rate : 058 BPM Atrial Rate : 058 BPM P-R Int : 158 ms QRS Dur : 084 ms QT Int : 426 ms P-R-T Axes : 068 025 027 degrees QTc Int : 418 ms SINUS BRADYCARDIA POSSIBLE LEFT ATRIAL ENLARGEMENT LOW VOLTAGE QRS BORDERLINE ECG WHEN COMPARED WITH ECG OF 16-JAN-2020 00:58, NO SIGNIFICANT CHANGE WAS FOUND Confirmed by Joe Sexton ([id number]) on 04/23/2020 9:06:16 AM Referred By: Confirmed By:Joe Sexton
--- NOTE | 2020-04-23 10:35 | PDOC ---
*Physical Exam - Vital Signs Last Vital Signs Temp Pulse Resp BP Pulse Ox 98.2 F 59 L 20 108/75 100 04/23/20 06:13 04/23/20 06:13 04/23/20 06:13 04/23/20 06:13 04/23/20 07:15 - Physical Exam 04/23/20 10:34 Patient is 39-year-old male who presented for homicidal ideations. Patient's creatinine noted to be mildly elevated from baseline patient received IV fluids. Numerous attempts at contacting psychiatry has been unsuccessful. Numerous voicemails have been administered. Currently, attempts are being made to obtain an evaluation by a particular psychiatrist. Patient expressed desire to leave, however I have advised him that at this point he is unable to leave due to homicidal ideations that he had expressed. We will continue to observe. 04/23/20 12:16 pt cleared by psychiatry. will d/c. ED Treatment Course - LABORATORY CBC & Chemistry Diagram: 04/22/20 23:40 04/23/20 06:34 - ADDITIONAL ORDERS Additional order review: Laboratory Results 04/23/20 04/23/20 04/23/20 06:34 00:12 00:12 Sodium 142 Potassium 4.1 Chloride 107 Carbon Dioxide 31 Anion Gap 4 L BUN 19.8 H Creatinine 1.8 H Est GFR (CKD-EPI)AfAm 54.13 Est GFR (CKD-EPI)NonAf 46.70 Random Glucose 86 Calcium 8.8 Total Bilirubin AST ALT Alkaline Phosphatase Total Protein Albumin TSH Urine Color Urine Appearance Urine pH Ur Specific [place] Urine Protein Urine Glucose (UA) Urine Ketones Urine Blood Urine Nitrite Urine Bilirubin Urine Urobilinogen Ur Leukocyte Esterase Urine WBC (Auto) Urine RBC (Auto) Urine Casts (Auto) U Epithel Cells (Auto) U Sm Round Cell (Auto) Urine Bacteria (Auto) Salicylates Opiates Screen Negative Methadone Screen Negative Acetaminophen Barbiturate Screen Negative Phencyclidine Screen Negative Ur Amphetamines Screen Negative MDMA (Ecstasy) Screen Negative Benzodiazepines Screen Negative Cocaine Screen Negative U Marijuana (THC) Screen Negative Alcohol, Quantitative < 3 04/23/20 04/23/20 04/22/20 00:12 00:12 23:40 Sodium 141 Potassium 4.0 Chloride 104 Carbon Dioxide 30 Anion Gap 8 BUN 16.4 Creatinine 2.0 H Est GFR (CKD-EPI)AfAm 47.65 Est GFR (CKD-EPI)NonAf 41.12 Random Glucose 88 Calcium 9.4 Total Bilirubin 0.8 AST 40 H ALT 33 Alkaline Phosphatase 58 Total Protein 7.4 Albumin 3.5 TSH 2.62 Urine Color Yellow Urine Appearance Clear Urine pH 6.0 Ur Specific [place] 1.025 Urine Protein 4+ H Urine Glucose (UA) Negative Urine Ketones Trace H Urine Blood Trace Urine Nitrite Negative Urine Bilirubin Negative Urine Urobilinogen 1.0 Ur Leukocyte Esterase Negative Urine WBC (Auto) 9 Urine RBC (Auto) 9 Urine Casts (Auto) 5 U Epithel Cells (Auto) 26 U Sm Round Cell (Auto) None seen Urine Bacteria (Auto) 9 Salicylates Opiates Screen Methadone Screen Acetaminophen Barbiturate Screen Phencyclidine Screen Ur Amphetamines Screen MDMA (Ecstasy) Screen Benzodiazepines Screen Cocaine Screen U Marijuana (THC) Screen Alcohol, Quantitative 04/22/20 23:40 Sodium Potassium Chloride Carbon Dioxide Anion Gap BUN Creatinine Est GFR (CKD-EPI)AfAm Est GFR (CKD-EPI)NonAf Random Glucose Calcium Total Bilirubin AST ALT Alkaline Phosphatase Total Protein Albumin TSH Urine Color Urine Appearance Urine pH Ur Specific [place] Urine Protein Urine Glucose (UA) Urine Ketones Urine Blood Urine Nitrite Urine Bilirubin Urine Urobilinogen Ur Leukocyte Esterase Urine WBC (Auto) Urine RBC (Auto) Urine Casts (Auto) U Epithel Cells (Auto) U Sm Round Cell (Auto) Urine Bacteria (Auto) Salicylates < 1.7 L Opiates Screen Methadone Screen Acetaminophen < 10 Barbiturate Screen Phencyclidine Screen Ur Amphetamines Screen MDMA (Ecstasy) Screen Benzodiazepines Screen Cocaine Screen U Marijuana (THC) Screen Alcohol, Quantitative 04/22/20 23:40 RBC 4.73 MCV 91.9 MCHC 33.1 RDW 14.2 MPV 9.3 Neutrophils % 46.4 D Lymphocytes % 39.2 D Monocytes % 12.4 H Eosinophils % 1.2 Basophils % 0.8 - Medications Given in the ED: ED Medications Discontinued Medications Generic Name Dose Route Start Last Admin Trade Name Freq PRN Reason Stop Dose Admin Lactated Ringer's 1,000 ml 04/23/20 03:11 04/23/20 03:22 Lactated Ringers Solution IV 04/23/20 03:12 1,000 ml ONCE ONE Administration Discharge - Discharge Information Problems reviewed: Yes Clinical Impression/Diagnosis: Homicidal ideation Adjustment disorder Qualifiers: Adjustment disorder type: unspecified type Qualified Code(s): F43.20 - Adjustment disorder, unspecified Condition: Stable Disposition: HOME - Follow up/Referral Referrals: Lisa Ramirez MD [Primary Care Provider] - - Patient Discharge Instructions Patient Printed Discharge Instructions: DI for Adjustment Disorder - Post Discharge Activity Work/Back to School Note: My Personal Safety Plan
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
[2020-04-23 12:46] VITALS: BP 147/90; PULSE 52; TEMP 98.6
== END 2020-04-23 12:20 | disposition home or self-care (01) ==
LOC: JER 22:49
DX: R45.850 Homicidal ideations (principal)
CPT/HCPCS: 36415; 80048; 80053; 80307; 81003; 84443; 85025; 93005; 93010; 99284-25

== ENCOUNTER 2020-07-07 04:47 | Day surgery (SDC) | payer OTHER ==
--- OUTSIDE RECORDS SUMMARY | 2020-06-27 16:04 | XMS ---
:1980 Author Organization [facility] Support Name Relationship Address Phone UE, UNEMPLOYED Unavailable Unavailable Unavailable UE Unavailable Unavailable Unavailable RIGOBERTO ANTONIO [address] [place] [address] YOGESH BOYLE MOTHER [address] [facility] [phone] [place] [address] [employer] Unavailable [facility], [place] [address] [employer] Unavailable [address] [place] [address] YOGESH BOOGIE MOTHER [address] [place] [address] YOGESH REESE MOTHER [address] [facility] [phone] [address] [address] [facility] [address] [place] [address] Re-disclosure Warning The records that you are about to access may contain information from federally- assisted alcohol or drug abuse programs. If such information is present, then the following federally mandated warning applies: This information has been disclosed to you from records protected by federal confidentiality rules (42 CFR part 2). The federal rules prohibit you from making any further disclosure of this information unless further disclosure is expressly permitted by the written consent of the person to whom it pertains or as otherwise permitted by 42 CFR part 2. A general authorization for the release of medical or other information is NOT sufficient for this purpose. The Federal rules restrict any use of the information to criminally investigate or prosecute any alcohol or drug abuse patient.The records that you are about to access may contain highly sensitive health information, the redisclosure of which is protected by Article 27-F of the [facility] Public Health law. If you continue you may haveaccess to information: Regarding HIV / AIDS; Provided by facilities licensed or operated by the [facility] Office of Mental Health; or Provided by the [facility] Office for People With Developmental Disabilities. If such information is present, then the following [facility] mandated warning applies: This information has been disclosed to you from confidential records which are protected by state law. State law prohibits you from making any further disclosure of this information without the specific written consent of the person to whom it pertains, or as otherwise permitted by law. Any unauthorized further disclosure in violation of state law may result in a fine or fpc sentence or both. A general authorization for the release of medical or other information is NOT sufficient authorization for further disclosure. Insurance Providers Payer name Policy type Policy ID Covered Covered alliance party's Policy P violeta / Coverage alliance party ID relationship to Burr Inf ormation type burr [place] [id number] [place] [id number] [place] MEDICAID [id number] SP [id number] MEDICAID [id number] SP [id number]
[2020-07-04 18:56] VITALS: BMI 25.5
--- OUTSIDE RECORDS SUMMARY | 2020-07-07 04:50 | XMS ---
:1980 Author Organization [facility] Support Name Relationship Address Phone UE, UNEMPLOYED Unavailable Unavailable Unavailable UE Unavailable Unavailable Unavailable RIGOBERTO ANTONIO [address] [place] [address] YOGESH BOYLE MOTHER [address] [phone] [place] [address] [employer] Unavailable [facility] [place], [place] [address] [employer] Unavailable [address] [place] [address] YOGESH BOOGIE MOTHER [address] [phone] [place] [address] YOGESH REESE MOTHER [address] [phone] [place] [address] GREEN Mother [address] [place] [address] Re-disclosure Warning The records that you are [...] is protected by Article 27-F of the [facility] Public Health law. If you continue you may haveaccess to information: Regarding HIV / AIDS; Provided by facilities licensed or operated by the [facility] Office of Mental Health; or Provided by the [facility] Office for People With Developmental Disabilities. If such information is present, then the following [facility] mandated warning applies: This information has been [...] law may result in a fine or penitentiary sentence or both. A general authorization for the release of medical or other information is NOT sufficient authorization for further disclosure. Insurance Providers Payer name Policy type Policy ID Covered Covered democrat's Policy P violeta / Coverage democrat ID relationship to Burr Inf ormation type burr [place] [id number] [place] [id number] O MEDICAID [id number] SP [id number] MEDICAID [id number] SP [id number] Results ID Date Data Source [id number] 07/03/2020 12:25:00 PM EDT [facility] Name Value Range Interpretation Description Data Sup porting Code Source(s) Document(s ) SARS [facility] coronavirus 2 RNA This lab was ordered by [facility] and reported by [facility]. Procedure
[2020-07-07] MEDS ORDERED: MIDAZOLAM HCL 2 MG/2 ML SINGLE DOSE VIAL ONE (18:51)
--- NOTE | 2020-07-07 19:02 | OP ---
Operative Note - Note: Operative Date: 07/07/20 Pre-Operative Diagnosis: Left renal stone Operation: Left ESWL Findings: 5 mm mid pole Left renal stone Post-Operative Diagnosis: Same as Pre-op Surgeon: Juancarlos Darby Anesthesia: Regional Estimated Blood Loss (mls): 0 Operative Report Dictated: Yes
[2020-07-07 19:44] VITALS: TEMP 97.5
--- NOTE | 2020-07-07 19:59 | OP ---
DATE OF OPERATION: 07/07/2020 PREOPERATIVE DIAGNOSIS: Left renal stone. POSTOPERATIVE DIAGNOSIS: Left renal stone. PROCEDURE: Left extracorporeal shockwave lithotripsy. ATTENDING: Adrienne Darby M.D. ANESTHESIA: Fractional. DESCRIPTION OF PROCEDURE: Patient was brought in the operating room, placed in a supine position on the operating room table. Ultrasonography and fluoroscopy were performed. A 5-mm left mid pole stone was identified. Anesthesia and preoperative antibiotics were then administered. 2500 impulses at 17 joules of power were administered to the stone with excellent fragmentation noted was noted under realtime ultrasonography and fluoroscopy. No complications were noted. The patient tolerated the procedure very well. ADRIENNE VELASCO M.D. [id number]
[2020-07-07 20:21] VITALS: BP 145/96; PULSE 50
== END 2020-07-07 20:25 | disposition home or self-care (01) ==
LOC: JASU-SURG 04:47
PROVIDERS: ATTEND Urology
PROC: 0TF4XZZ Fragmentation in Left Kidney Pelvis, External Approach (ICD-10-PCS; principal; 2020-07-07 18:00)
DX: N20.0 Calculus of kidney (principal)

== ENCOUNTER 2021-03-15 23:52 | Inpatient (IN) | payer OTHER ==
[2021-03-16 00:21] VITALS: BMI 27.8
[2021-03-16] MEDS ORDERED: diazePAM 5 MG TABLET PO ONE (01:02)
[2021-03-16] MEDS ORDERED: diazePAM 5 MG TABLET ONE (02:03)
[2021-03-16 03:50] LABS: BASO % 0.4 % (0-2.0); EOS % 0.9 % (0-4.5); HEMATOCRIT 38.7 % (35.4-49); HEMOGLOBIN 13.2 GM/dL (11.7-16.9); LYMPH % 28.1 % (8-40); MCH 30.7 pg (25.7-33.7); MEAN CELL VOLUME 90.2 fl (80-96); MEAN PLT VOLUME 8.3 fl (7.5-11.1); MONO % 8.9 % (3.8-10.2); NEUT % 61.7 % (42.8-82.8); PLATELET COUNT 237 10^3/uL (134-434); RBC 4.29 M/mm3 (4.00-5.60); WHITE BLOOD COUNT 8.2 K/mm3 (4.0-10.0)
[2021-03-16 04:00] LABS: INR 1.08 (0.83-1.09); PROTHROMBIN TIME (PATIENT) 13.2 SEC (9.7-13.0)
[2021-03-16 04:03] LABS: ACTIVATED PTT 29.6 SECONDS (25.2-36.5)
[2021-03-16 04:12] LABS: CALCIUM 8.7 mg/dL (8.5-10.1)
[2021-03-16 04:13] LABS: ALBUMIN 3.5 g/dl (3.4-5.0); BLOOD UREA NITROGEN 20.5 mg/dL (7-18)
[2021-03-16 04:17] LABS: BILIRUBIN,TOTAL 0.3 mg/dL (0.2-1); TOT PROT 7.1 g/dl (6.4-8.2)
[2021-03-16] MEDS ORDERED: LACTATED RINGERS SOLUTION 1000 ML INFUS.BAG IV ONE (05:04)
[2021-03-16] MEDS ORDERED: SODIUM CHLORIDE 1,000 ML IV STA (08:57)
[2021-03-16 09:03] LABS: EPI CELLS 11 /uL (0-25.1); HYALINE CASTS 3 /uL (0-3.1); PH,URINE 5.5 (5.0-8.0); URINE APPEARANCE CLEAR; URINE BACTERIA 7 /uL (0-1359); URINE BILIRUBIN NEGATIVE (NEGATIVE); URINE COLOR YELLOW; URINE GLUCOSE (UA) NEGATIVE (NEGATIVE); URINE KETONE NEGATIVE (NEGATIVE); URINE LEUK ESTERASE NEGATIVE (NEGATIVE); URINE NITRITE NEGATIVE (NEGATIVE); URINE PROTEIN 3+ (NEGATIVE); URINE RBC 3 /uL (0-23.9); URINE UROBILINOGEN 0.2 mg/dL (0.2-1.0); URINE WBC 9 /uL (0-25.8)
[2021-03-16] MEDS: SODIUM CHLORIDE 1,000 ML IV SCH ×3 (10:45→20:54)
[2021-03-16] MEDS: oxyCODONE HCL 5 MG TABLET PO PRN ×2 (11:40→23:08)
[2021-03-16] MEDS ORDERED: ACETAMINOPHEN 325 MG TABLET (FP) PO PRN (19:17)
[2021-03-16] MEDS: HEPARIN NA (PORCINE) 5,000 UNITS/ML 1ML VIAL SQ SCH (21:53)
[2021-03-16] MEDS: BACITRACIN 15 GM TUBE TOPICAL OINTMENT TP SCH (21:57)
[2021-03-17] MEDS: oxyCODONE HCL 5 MG TABLET PO PRN ×2 (02:55→07:41)
[2021-03-17] MEDS: HEPARIN NA (PORCINE) 5,000 UNITS/ML 1ML VIAL SQ SCH (06:00)
[2021-03-17] MEDS: SODIUM CHLORIDE 1,000 ML IV SCH ×2 (06:01→10:03)
[2021-03-17 08:13] LABS: HEMOGLOBIN 12.8 GM/dL (11.7-16.9); MCH 30.4 pg (25.7-33.7); MCHC 33.6 g/dl (32.0-35.9); MEAN CELL VOLUME 90.5 fl (80-96); MEAN PLT VOLUME 8.6 fl (7.5-11.1); PLATELET COUNT 214 10^3/uL (134-434); RDW 13.8 % (11.9-15.9); WHITE BLOOD COUNT 5.2 K/mm3 (4.0-10.0)
[2021-03-17 08:33] LABS: BLOOD UREA NITROGEN 14.4 mg/dL (7-18); CALCIUM 8.3 mg/dL (8.5-10.1)
[2021-03-17 08:34] LABS: ALBUMIN 3.1 g/dl (3.4-5.0); MAGNESIUM 1.9 mg/dL (1.8-2.4)
[2021-03-17 08:37] LABS: CREATININE 1.7 mg/dL (0.55-1.3); PHOSPHOROUS 3.2 mg/dL (2.5-4.9)
[2021-03-17 08:38] LABS: BILIRUBIN,TOTAL 0.9 mg/dL (0.2-1); TOT PROT 6.2 g/dl (6.4-8.2)
[2021-03-17] MEDS: BACITRACIN 15 GM TUBE TOPICAL OINTMENT TP SCH (12:21)
[2021-03-17 13:20] VITALS: BP 147/90; PULSE 61; TEMP 98.6
== END 2021-03-17 14:03 | disposition home or self-care (01) | DRG 351 ==
LOC: JER 23:52 → JERBED 03-16 06:53 → J6S 03-16 09:25
PROVIDERS: ATTEND Internal Medicine
DX: T79.6XXA Traumatic ischemia of muscle, initial encounter (principal); V29.9XXA Motorcycle rider (driver) (passenger) injured in unspecified traffic accident, initial encounter; Y93.89 Activity, other specified; Y92.412 Parkway as the place of occurrence of the external cause; S80.211A Abrasion, right knee, initial encounter; N18.9 Chronic kidney disease, unspecified
CPT/HCPCS: 36415; 70450-TC; 71250-TC; 72125-TC; 72128-TC; 72131-TC; 73610-TC-LT-FY; 73610-TC-RT-FY; 73630-TC-LT; 73630-TC-RT-FY; 74176-TC; 80053; 81003; 82550; 82553; 83735; 84100; 85025; 85027; 85610; 85730; 86850; 86900; 86901; 87086; 93005; 93010; 97116-GP; 97161-GP; 99285-25; C9803; J1644; U0003; U0005

== ENCOUNTER 2021-12-02 08:01 | Emergency (ER) | payer OTHER ==
[2021-12-02 08:04] VITALS: BP 166/84; PULSE 80; TEMP 98.2; BMI 27.8
[2021-12-02] MEDS ORDERED: TETRACAINE 0.5% HCL 0.6ML DROPPER.BOTTLE OD ONE (08:07)
[2021-12-02] MEDS ORDERED: FLUORESCEIN NA 1 EA STRIP OD ONE (08:08)
[2021-12-02] MEDS ORDERED: TETRACAINE 0.5% OPHTH SOLN 2 ML BOTTLE ONE (08:13)
[2021-12-02] MEDS ORDERED: FLUORESCEIN NA 1 EA STRIP ONE (08:13)
[2021-12-02] MEDS ORDERED: ERYTHROMYCIN 0.5% OPHTHALMIC OINTMENT 3.5 GM TUBE OD ONE (08:39)
[2021-12-02] MEDS ORDERED: DICLOFENAC SODIUM 0.1% OPHTHALMIC 2.5ML BOTTLE OD ONE (08:43)
[2021-12-02] MEDS ORDERED: ERYTHROMYCIN 0.5% OPHTHALMIC OINTMENT 3.5 GM TUBE ONE (08:49)
== END 2021-12-02 11:12 | disposition home or self-care (01) ==
LOC: JERFT 08:01
DX: S05.02XA Injury of conjunctiva and corneal abrasion without foreign body, left eye, initial encounter (principal); H53.142 Visual discomfort, left eye; W50.4XXA Accidental scratch by another person, initial encounter
CPT/HCPCS: 99283-25

== ENCOUNTER 2022-03-17 09:23 | Emergency (ER) | payer OTHER ==
[2022-03-17 09:27] VITALS: BP 135/93; PULSE 86; TEMP 98; BMI 27.8
[2022-03-17] MEDS ORDERED: DIPHTH,PERTUSS(ACELL),TET 0.5 ML DISP.SYRIN IM ONE ×2 (09:46→09:59)
== END 2022-03-17 10:27 | disposition home or self-care (01) ==
LOC: JERFT 09:23
PROC: 0HQFXZZ Repair Right Hand Skin, External Approach (ICD-10-PCS; principal; 2022-03-17)
PROC: 3E0234Z Introduction of Serum, Toxoid and Vaccine into Muscle, Percutaneous Approach (ICD-10-PCS; 2022-03-17)
DX: S61.011A Laceration without foreign body of right thumb without damage to nail, initial encounter (principal); W23.0XXA Caught, crushed, jammed, or pinched between moving objects, initial encounter
CPT/HCPCS: 12001-25; 73140-TC-RT-FY; 90471; 90715; 99284-25

== ENCOUNTER 2024-06-04 04:35 | Day surgery (SDC) | payer OTHER ==
[2024-06-01 09:18] VITALS: BMI 27.8
[2024-06-04 14:15] VITALS: RESP 20
[2024-06-04] MEDS: LISINOPRIL 20 MG TABLET PO ONE (14:19)
[2024-06-04] MEDS ORDERED: MIDAZOLAM HCL 2 MG/2 ML SINGLE DOSE VIAL ONE (16:10)
[2024-06-04] MEDS ORDERED: ONDANSETRON 4 MG/2 ML VIAL ONE (16:45)
[2024-06-04 18:28] VITALS: BP 169/107; PULSE 57; TEMP 97
== END 2024-06-04 18:34 | disposition home or self-care (01) ==
LOC: JASU-SURG 04:35
PROVIDERS: ATTEND Urology
PROC: 0TF3XZZ Fragmentation in Right Kidney Pelvis, External Approach (ICD-10-PCS; principal; 2024-06-04 16:00)
DX: N20.0 Calculus of kidney (principal)